=== PATIENT | male | born 1960 | race Caucasian/White ===

== ENCOUNTER 2016-09-15 16:25 | Emergency (ER) | payer OTHER ==
[~2016-09-15] VITALS: Ht 172.7 cm; Wt 90.7 kg
[~2016-09-15 16:25] MED LIST: 'PARAFON FORTE500 M1 PO; AMARYL1 M1 PO; ANAPROX DS550 MG PO; ANTIVERT/2525 M1 PO; ATIVAN1 MG PO; CIPRO500 MG PO; CYCLOBENZAPRINE10 MG PO; DAYPRO600 M1 PO; FLAGYL500 MG PO; FLEXERIL10 MG PO; KEFLEX500 MG PO; LISINOPRIL2.5 MG PO; MEDROL DOSEPAK4 MG PO; METFORMIN1000 MG PO; METFORMIN500 MG PO; MOTRIN800 MG PO; NAPROSYN500 MG PO; NORCO 325 MG-51 TAB PO; NORCO 7.5-3251 EACH PO; OMEPRAZOLE20 M2 PO; PERCOCET 325 MG1 TA3 PO; PHENERGAN25 M3 PO; PRAVACHOL10 MG; PRAVACHOL20 MG PO; RAYOS5 M1 PO; ROBAXIN750 MG PO; VICODIN 5-3001 EACH PO; VICODIN 5/500 505 MG PO; VICODIN 500 MG-1 TAB PO; VICODIN ES 7501 TAB PO; VOLTAREN50 M1 PO
[2016-09-15] MEDS ORDERED: Glimepiride1 MG PO (16:29)
[2016-09-15 17:20] LABS: BILIRUBIN NEGATIVE (NEGATIVE); BLOOD 3+ (NEGATIVE); CLARITY SL CLOUDY (CLEAR); COLOR YELLOW (YELLOW); GLUCOSE NEGATIVE (NEGATIVE); KETONE NEGATIVE (NEGATIVE); LEUKO ESTERASE NEGATIVE (NEGATIVE); NITRITE NEGATIVE (NEGATIVE); PROTEIN TRACE (NEGATIVE); SPECIFIC GRAVITY >= 1.030 (1.005-1.030); UROBILINOGEN 0.2 E.U./dl (0.2-1.0)
[2016-09-15 17:31] LABS: BASO % 0.2 % (0.0-1.0); EOS # 0.1 10*3/uL (0.0-0.4); EOS % 0.6 % (1.0-4.0); HEMATOCRIT 41.1 % (42.0-52.0); HEMOGLOBIN 13.3 g/dl (14.0-18.0); LYMPH % 23.5 % (27.0-41.0); MEAN CELL VOLUME 94.7 fl (80.0-94.0); MEAN CORPUSCULAR HGB 30.6 pg (27.0-31.0); MEAN CORPUSCULAR HGB CONC 32.4 g/dl (33.0-37.0); MEAN PLATELET VOLUME 9.7 fl (9.6-12.3); MONO # 0.7 10*3/uL (0.1-1.0); MONO % 8.6 % (3.0-9.0); NEUT # 5.7 10*3/uL (2.3-7.9); NEUT % 66.6 % (47.0-73.0); PLATELET COUNT AUTOMATED 201 10*3/uL (130-400); RED BLOOD COUNT 4.34 10*6/uL (4.50-5.90); RED CELL DISTRI WIDTH 13.6 % (0-14.5); WHITE BLOOD COUNT 8.6 10*3/uL (4.8-10.8)
[2016-09-15 17:32] LABS: RBC TNTC rbc/hpf (0-2); URINE REFLEX COMMENT YES (NO)
[2016-09-15 17:45] LABS: ALBUMIN 3.8 gm/dl (3.1-4.5); ALKALINE PHOSPHATASE 65 U/L (45-117); BILIRUBIN, TOTAL 0.4 mg/dl (0.2-1.0); BUN 17 mg/dl (7-24); CARBON DIOXIDE 26 mmol/L (21-32); CHLORIDE 105 mmol/L (98-107); EST GLOM FILT AFRICAN AMERICAN > 60 ml/min; GLUCOSE 115 mg/dL (65-99); POTASSIUM 3.7 mmol/L (3.5-5.1); SGOT/AST 15 IU/L (3-35); SGPT/ALT 52 U/L (12-78); SODIUM 141 mmol/L (136-145); TOTAL PROTEIN 6.9 gm/dL (6.4-8.2)
[2016-09-15] MEDS ORDERED: NORCO 5-325 TA1 EACH PO (18:06)
[2016-09-15] MEDS ORDERED: ZOFRAN ODT4 MG SL (18:06)
[2016-09-15] MEDS ORDERED: FLOMAX0.4 MG PO (18:06)
[2016-10-30] MEDS ORDERED: CYCLOBENZAPRINE10 MG PO (13:01)
[2016-10-30] MEDS ORDERED: PREDNISONE10 MG PO (13:01)
== END 2016-09-15 19:38 | disposition home or self-care (01) ==
LOC: ED 16:25
PROVIDERS: Nurse Practitioner Family
DX: N20.1 Calculus of ureter (principal); Z87.442 Personal history of urinary calculi; F17.200 Nicotine dependence, unspecified, uncomplicated; Z90.49 Acquired absence of other specified parts of digestive tract; Z91.013 Allergy to seafood

== ENCOUNTER 2016-12-25 11:38 | Emergency (ER) | payer OTHER ==
[~2016-12-25] VITALS: Ht 175.2 cm; Wt 90.7 kg
[~2016-12-25 11:38] MED LIST changes: +FLOMAX0.4 MG PO; +Glimepiride1 MG PO; +NORCO 5-325 TA1 EACH PO; +PREDNISONE10 MG PO; +ZOFRAN ODT4 MG SL
[2016-12-25] MEDS ORDERED: NAPROSYN500 MG PO (12:08)
== END 2016-12-25 13:55 | disposition home or self-care (01) ==
LOC: ED 11:38
DX: S83.92XA Sprain of unspecified site of left knee, initial encounter (principal); I10 Essential (primary) hypertension; Z91.013 Allergy to seafood; Z79.899 Other long term (current) drug therapy; W17.2XXA Fall into hole, initial encounter; Y93.9 Activity, unspecified; Y92.9 Unspecified place or not applicable; Y99.9 Unspecified external cause status

== ENCOUNTER 2017-02-13 16:03 | Emergency (ER) | payer OTHER ==
[2017-02-13] MEDS ORDERED: HYDROCODONE BIT1 T20 PO (16:15)
[2017-02-13] MEDS ORDERED: LISINOPRIL AND1 TAB PO (16:15)
== END 2017-02-13 17:02 | disposition home or self-care (01) ==
LOC: ED 16:03
DX: H53.8 Other visual disturbances (principal); R03.0 Elevated blood-pressure reading, without diagnosis of hypertension; I10 Essential (primary) hypertension; F17.200 Nicotine dependence, unspecified, uncomplicated; Z90.49 Acquired absence of other specified parts of digestive tract; E78.5 Hyperlipidemia, unspecified; Z91.013 Allergy to seafood

== ENCOUNTER 2017-02-19 10:29 | Emergency (ER) | payer OTHER ==
[~2017-02-19 10:29] MED LIST changes: +HYDROCODONE BIT1 T20 PO; +LISINOPRIL AND1 TAB PO
[2017-02-19] MEDS ORDERED: FLUOXETINE HYDR20 M1 PO (10:32)
[2017-02-19] MEDS ORDERED: NAPROSYN500 MG PO (12:23)
== END 2017-02-19 12:36 | disposition home or self-care (01) ==
LOC: ED 10:29
DX: S91.012A Laceration without foreign body, left ankle, initial encounter (principal); S83.92XA Sprain of unspecified site of left knee, initial encounter; S80.812A Abrasion, left lower leg, initial encounter; I10 Essential (primary) hypertension; E11.69 Type 2 diabetes mellitus with other specified complication; M06.9 Rheumatoid arthritis, unspecified; Z79.899 Other long term (current) drug therapy; Z91.013 Allergy to seafood; W17.2XXA Fall into hole, initial encounter; Y93.89 Activity, other specified; Y92.89 Other specified places as the place of occurrence of the external cause; Y99.8 Other external cause status

== ENCOUNTER → 2017-04-02 | Outpatient (CLI) | payer OTHER ==
[~2017-04-02] MED LIST changes: +FLUOXETINE HYDR20 M1 PO
[2017-04-02 10:45] LABS: BUN 22 mg/dl (7-24); CARBON DIOXIDE 25 mmol/L (21-32); CHLORIDE 104 mmol/L (98-107); CHOLESTEROL 188 mg/dL (<200); CPK 98 U/L (39-308); EST GLOM FILT AFRICAN AMERICAN > 60 ml/min; GLUCOSE 105 mg/dL (65-99); HDL CHOLESTEROL 51 mg/dl (40-60); LDL CHOLESTEROL 106 mg/dL (9-159); POTASSIUM 3.9 mmol/L (3.5-5.1); SODIUM 138 mmol/L (136-145); TRIGLYCERIDES 157 mg/dl (<150); VLDL CHOLESTEROL 31 mg/dL (6-40)
[2017-04-02 10:53] LABS: HEMOGLOBIN A1c 6.6 % (4.8-5.6)
== END | disposition home or self-care (01) ==
LOC: LAB 09:28
PROVIDERS: Family Medicine
DX: E11.9 Type 2 diabetes mellitus without complications (principal); E78.00 Pure hypercholesterolemia, unspecified

== ENCOUNTER → 2017-07-26 | Outpatient (CLI) | payer OTHER | LOC: US 11:30 | DX: M79.661 Pain in right lower leg (principal) ==

== ENCOUNTER → 2017-12-06 | Outpatient (CLI) | payer OTHER ==
[2017-12-06 10:53] LABS: BUN 18 mg/dl (7-24); CHLORIDE 102 mmol/L (98-107); CHOLESTEROL 117 mg/dL (<200); CPK 102 U/L (39-308); CREATININE 0.96 mg/dL (0.70-1.30); HDL CHOLESTEROL 54 mg/dl (40-60); LDL CHOLESTEROL 39 mg/dL (9-159); POTASSIUM 3.9 mmol/L (3.5-5.1); SODIUM 138 mmol/L (136-145); TRIGLYCERIDES 122 mg/dl (<150); VLDL CHOLESTEROL 24 mg/dL (6-40)
[2017-12-07 10:05] LABS: CREATININE,URINE 15.3 mg/dL (Not Estab.); MICRO ALBUMIN/CRE RATIO <19.6 (0.0-30.0)
== END | disposition home or self-care (01) ==
LOC: LAB 10:03
PROVIDERS: Family Medicine
DX: E78.00 Pure hypercholesterolemia, unspecified (principal); E11.9 Type 2 diabetes mellitus without complications

== ENCOUNTER 2018-10-06 05:58 | Emergency (ER) | payer OTHER ==
[~2018-10-06] VITALS: Ht 175.2 cm; Wt 88.5 kg
== END 2018-10-06 07:37 | disposition home or self-care (01) ==
LOC: ED 05:58
DX: S89.81XA Other specified injuries of right lower leg, initial encounter (principal); F17.200 Nicotine dependence, unspecified, uncomplicated; G89.29 Other chronic pain; E11.9 Type 2 diabetes mellitus without complications; E78.5 Hyperlipidemia, unspecified; I10 Essential (primary) hypertension; M06.9 Rheumatoid arthritis, unspecified; Z91.013 Allergy to seafood; Z90.49 Acquired absence of other specified parts of digestive tract; Z79.899 Other long term (current) drug therapy; W00.2XXA Other fall from one level to another due to ice and snow, initial encounter; Y93.89 Activity, other specified; Y92.89 Other specified places as the place of occurrence of the external cause; Y99.9 Unspecified external cause status

== ENCOUNTER 2019-07-30 19:29 | Inpatient (IN) | payer SELFPAY ==
[~2019-07-30] VITALS: Ht 175.3 cm; Wt 87.1 kg
--- NOTE | ~2019-07-30 | EKG ---
[place], [place] ELECTROCARDIOGRAM REPORT NAME: ÓSCAR OH UNIT #: [id number] ROOM: 520 DOCTOR: LON DRAFT REPORT BIRTHDATE: [birth year] [facility] Test Date: 2019-07-30 Test Time: 20:10:23 Pat Name: ÓSCAR OH Department: Room: 520 Gender: M Technology Training Associate: : 1960 Requested By: CARLOS RUIZ Order Number: [id number] Reading MD: Matilda Cherry MD Measurements Intervals [place] Rate: 67 P: 11 [place]: 180 QRS: -21 QRSD: 99 T: 24 QT: 398 QTc: 420 Interpretive Statements Sinus rhythm Normal ECG Electronically Signed On 08-14-2019 7:22:24 PST by Matilda Cherry MD CM:EKGRPT:ELECTROCARDIOGRAM REPORT 09 0722 CARLOS NAPIER DRAFT REPORT CARLOS RUIZ DO
[2019-07-30 19:31] VITALS: BP 138/76
[2019-07-30 20:42] LABS: BASO % 0.4 % (0.0-1.0); EOS # 0.1 10*3/uL (0.0-0.4); HEMATOCRIT 38.9 % (42.0-52.0); HEMOGLOBIN 12.7 g/dl (14.0-18.0); LYMPH # 2.2 10*3/uL (1.3-4.4); LYMPH % 22.2 % (27.0-41.0); MEAN CELL VOLUME 94.9 fl (80.0-94.0); MEAN CORPUSCULAR HGB CONC 32.6 g/dl (33.0-37.0); MEAN PLATELET VOLUME 10.2 fl (9.6-12.3); MONO # 0.8 10*3/uL (0.1-1.0); NEUT # 6.9 10*3/uL (2.3-7.9); NEUT % 68.1 % (47.0-73.0); PLATELET COUNT AUTOMATED 224 10*3/uL (130-400); RED CELL DISTRI WIDTH 13.2 % (0-14.5); WHITE BLOOD COUNT 10.1 10*3/uL (4.8-10.8)
[2019-07-30 20:56] LABS: ALBUMIN 3.3 gm/dl (3.1-4.5); ALKALINE PHOSPHATASE 92 U/L (45-117); BUN 22 mg/dl (7-24); CHLORIDE 104 mmol/L (98-107); CREATININE 1.22 mg/dL (0.70-1.30); POTASSIUM 3.7 mmol/L (3.5-5.1); SGOT/AST 15 IU/L (3-35); SGPT/ALT 31 U/L (12-78); SODIUM 138 mmol/L (136-145); TOTAL PROTEIN 6.4 gm/dL (6.4-8.2)
[2019-07-30 21:53] VITALS: BP 113/56
[2019-07-30 23:41] LABS: BILIRUBIN NEGATIVE (NEGATIVE); BLOOD NEGATIVE (NEGATIVE); CLARITY CLEAR (CLEAR); COLOR YELLOW (YELLOW); GLUCOSE 2+ (NEGATIVE); KETONE TRACE (NEGATIVE); LEUKO ESTERASE NEGATIVE (NEGATIVE); NITRITE NEGATIVE (NEGATIVE); SPECIFIC GRAVITY 1.025 (1.005-1.030); UROBILINOGEN 0.2 E.U./dl (0.2-1.0)
[2019-07-30 23:48] LABS: EPITHELIAL CELLS 0-2; RBC 0-2 rbc/hpf (0-2); WBC 0-2 wbc/hpf (0-5)
[2019-07-30 23:50] VITALS: BP 122/69
--- NOTE | 2019-07-30 23:50 | NUR ---
A 59, admitted to 5E, under the services of KAYLA Thompson DO with a diagnosis of ACUTE PANCREATITIS. Chief complaint is ABDOMINAL PAIN. Patient arrived via wheel chair from ER. Monitor applied. Initial assessment completed. Vital signs taken and recorded. DR. GONZALES notified of admission to the unit. Orders received. See assessment for past medical history, medications and allergies. Patient oriented to unit. [address] visitation policy reviewed. Clothing/patient valuable form completed. MANE BAER
--- NOTE | 2019-07-31 00:16 | NUR ---
NOTIFIED. DR. GONZALES THAT PATIENTS MEDICATION LIST IS UP TO DATE AND PATIENT TAKES HIS BLOOD SUGAR ONCE A DAY. DR. GONZALES STATED SHE WILL PUT ORDERS IN.
--- NOTE | 2019-07-31 01:35 | NUR ---
24 HR chart check completed.
--- NOTE | 2019-07-31 05:27 | NUR ---
PATIENT RESTING IN BED. BLOOD SUGAR 162. PATIENT VOICED NO OTHER CONCERNS AT THIS TIME. CALL LIGHT WITHIN REACH.
[2019-07-31 07:09] LABS: BASO % 0.3 % (0.0-1.0); EOS # 0.1 10*3/uL (0.0-0.4); EOS % 0.9 % (1.0-4.0); HEMATOCRIT 39.6 % (42.0-52.0); HEMOGLOBIN 12.7 g/dl (14.0-18.0); LYMPH # 1.7 10*3/uL (1.3-4.4); LYMPH % 21.1 % (27.0-41.0); MEAN CELL VOLUME 95.2 fl (80.0-94.0); MEAN CORPUSCULAR HGB 30.5 pg (27.0-31.0); MEAN CORPUSCULAR HGB CONC 32.1 g/dl (33.0-37.0); MEAN PLATELET VOLUME 10.3 fl (9.6-12.3); MONO # 0.7 10*3/uL (0.1-1.0); MONO % 8.9 % (3.0-9.0); NEUT # 5.5 10*3/uL (2.3-7.9); NEUT % 68.4 % (47.0-73.0); PLATELET COUNT AUTOMATED 218 10*3/uL (130-400); RED BLOOD COUNT 4.16 10*6/uL (4.50-5.90); RED CELL DISTRI WIDTH 13.4 % (0-14.5)
[2019-07-31 07:32] LABS: BUN 16 mg/dl (7-24); CHLORIDE 108 mmol/L (98-107); CHOLESTEROL 111 mg/dL (<200); HDL CHOLESTEROL 42 mg/dl (40-60); LDL CHOLESTEROL 52 mg/dL (9-159); PHOSPHOROUS 2.5 mg/dL (2.5-4.9); POTASSIUM 4.4 mmol/L (3.5-5.1); SODIUM 141 mmol/L (136-145); TRIGLYCERIDES 86 mg/dl (<150); VLDL CHOLESTEROL 17 mg/dL (6-40)
[2019-07-31 07:40] LABS: FREE T4 0.99 ng/dl (0.76-1.46)
[2019-07-31 07:41] LABS: LIPASE 2159 U/L (73-393)
[2019-07-31 07:44] LABS: ACT PARTIAL THROMBO TIME 25.9 SECONDS (20.0-32.1); INTERNATIONAL NORM RATIO 0.9 (2.0-3.5)
--- NOTE | 2019-07-31 07:45 | NUR ---
VITAL SIGNS STABLE, NO COMPLAINTS OF PAIN, SKIN TURGOR NON-TENTING, SKIN WARM DRY AND INTACT, ARI, HEART SOUNDS NORMAL, LUNG SOUNDS CLEAR THROUGHOUT, HYPERACTIVE BOWEL SOUNDS X4, ABDOMEN SOFT, NON-DISTENDED, NON-TENDER, + PERIPHERAL PULSES, IV SITE DRY AND INTACT, NO S/S OF INFECTION, PT PLEASANT AND COOPERATIVE. RICARDO OVERTON, SPNRCC
[2019-07-31 08:07] VITALS: BP 148/82
[2019-07-31 08:28] LABS: VITAMIN D, 25-HYDROXY 15.9 ng/mL (30-100)
--- NOTE | 2019-07-31 09:34 | NUR ---
PT COMPLAINED OF PAIN "6 IN MY UPPER ABDOMEN." MORPHINE 2MG IVP BY RENETTA SAENZ RN. WILL CONTINUE TO ASSESS. RICARDO OVERTON [facility]
--- NOTE | 2019-07-31 10:00 | NUR ---
PAIN MEDICATION EFFECTIVE "12/21 A LITTLE BIT BETTER." WILL CONTINUE TO ASSESS. RICARDO OVERTON [facility]
--- NOTE | 2019-07-31 10:30 | NUR ---
Meter Reader Inspector in to see patient. He is currently not in his room. Will follow up at a later time.
[2019-07-31 12:00] VITALS: BP 136/70
--- NOTE | 2019-07-31 12:46 | NUR ---
VS STABLE, PT RESTING COMFORTABLY, NO COMPLAINTS AT THIS TIME. WILL CONTINUE TO ASSESS. RICARDO HSIEH
[2019-07-31 16:00] VITALS: BP 130/68
--- NOTE | 2019-07-31 18:50 | NUR ---
PT MEDICATED WITH IV MORPHINE AND ZOFRAN PER PRN ORDER FOR C/O ABD PAIN AND NAUSEA/VOMITING. WILL MONITOR EFFECTIVENESS.
[2019-07-31 20:00] VITALS: BP 108/62
--- NOTE | 2019-07-31 20:01 | NUR ---
PATIENT REQUESTING PAIN MEDICATION FOR MED ABDOMINAL PAIN RATED 7/10 ON 0/10 SCALE. NORCO ADMINISTERED PRESCRIBED. WILL MONITOR FOR EFFECTIVENESS.
--- NOTE | 2019-07-31 21:01 | NUR ---
PATIENT AWAKE AND ALERT. PATIENT C/O MID ABDOMINAL PAIN- SEE PAIN MED ASSESSMENT. PATIENT HAS NO OTHER COMPLAINTS AT THIS TIME. CALL LIGHT WITHIN REACH.
--- NOTE | 2019-07-31 21:01 | NUR ---
PATIENT RESTING WITH EYES CLOSED AT THIS TIME.RESPIRATIONS EASY AND UNLABORED. CALL LIGHT WITHIN REACH. WILL MONITOR.
--- NOTE | 2019-07-31 23:50 | NUR ---
24 HR chart check completed.
--- NOTE | 2019-07-31 23:59 | NUR ---
PATIENT RESTING WITH EYES CLOSED AT THIS TIME. RESPIRATIONS EASY AND UNLABORED. CALL LIGHT WITHIN REACH. WILL MONITOR.
[2019-08-01] VITALS: BP 107/61
--- NOTE | 2019-08-01 05:45 | NUR ---
PATIENT AWAKE AND ALERT, SITTING IN BED. PT HAS NO COMPLAINTS AT THIS TIME. WILL MONITOR.
[2019-08-01 06:41] LABS: BASO % 0.2 % (0.0-1.0); EOS # 0.1 10*3/uL (0.0-0.4); EOS % 1.5 % (1.0-4.0); HEMATOCRIT 38.3 % (42.0-52.0); HEMOGLOBIN 12.2 g/dl (14.0-18.0); LYMPH # 1.8 10*3/uL (1.3-4.4); MEAN CORPUSCULAR HGB 30.6 pg (27.0-31.0); MEAN CORPUSCULAR HGB CONC 31.9 g/dl (33.0-37.0); MEAN PLATELET VOLUME 10.4 fl (9.6-12.3); MONO # 0.5 10*3/uL (0.1-1.0); MONO % 8.3 % (3.0-9.0); NEUT # 4.1 10*3/uL (2.3-7.9); NEUT % 62.7 % (47.0-73.0); PLATELET COUNT AUTOMATED 200 10*3/uL (130-400); RED BLOOD COUNT 3.99 10*6/uL (4.50-5.90); RED CELL DISTRI WIDTH 13.3 % (0-14.5); WHITE BLOOD COUNT 6.5 10*3/uL (4.8-10.8)
[2019-08-01 06:52] LABS: BUN 15 mg/dl (7-24); CHLORIDE 111 mmol/L (98-107); CREATININE 0.81 mg/dL (0.70-1.30); LIPASE 731 U/L (73-393); POTASSIUM 3.9 mmol/L (3.5-5.1); SGOT/AST 16 IU/L (3-35); SGPT/ALT 28 U/L (12-78); SODIUM 143 mmol/L (136-145)
[2019-08-01 06:54] LABS: ALKALINE PHOSPHATASE 93 U/L (45-117); TOTAL PROTEIN 5.9 gm/dL (6.4-8.2)
--- NOTE | 2019-08-01 07:59 | NUR ---
Shift chart check completed.
[2019-08-01 08:05] VITALS: BP 130/80
--- NOTE | 2019-08-01 08:31 | NUR ---
ZOFRAN GIVEN FOR NAUSEA
--- NOTE | 2019-08-01 09:23 | NUR ---
MOHIT PATTERSON [employer]AIL [employer]ISSION SALES ASSOCIATE ROUNDED & ORDERS RECEIVED
--- NOTE | 2019-08-01 10:30 | NUR ---
Poster in to talk to patient. Patient states lives at home with his . There are 14 steps in the home. Physician: Dr. Aung Damon [facility]: [facility] Home health services: none Patient's level of ADLs: INDEPENDENT Patient has working utilities: yes DME: none Follow-up physician's appointment after d/c: will be made by the hospitalist nurse director upon discharge Does patient want to access PORTAL?: no Discharge plan discussed with patient. He lives at home with his . He is independent in his ADLs and ambulation. Discussed home health care services and he denies any home needs at this time. When medically stable he will be discharged to home. His will provide transportation on discharge. OLEKSANDR CHAO
[2019-08-01 12:00] VITALS: BP 130/68
[2019-08-01] MEDS ORDERED: VITAMIN D32000 UNI1 PO (13:42)
--- NOTE | 2019-08-01 13:49 | NUR ---
Hep Lock discontinued. Site asymptomatic. Pressure applied. Sterile dressing applied. ALIN EAST Discharge instructions reviewed with patient/family. Patient receptive and verbalizes understanding. Follow-up care arranged. Written instructions given to patient/family. ALIN EAST
== END 2019-08-01 15:23 | disposition home or self-care (01) | DRG 439 ==
LOC: ED 19:29 → 5E 23:10 → EDHOLD 23:10 → 5E 23:38
PROVIDERS: Emergency Medicine; Internal Medicine; Registered Nurse; ADMIT Family Medicine
DX: K85.90 Acute pancreatitis without necrosis or infection, unspecified (principal); E44.0 Moderate protein-calorie malnutrition; I10 Essential (primary) hypertension; E11.9 Type 2 diabetes mellitus without complications; E78.5 Hyperlipidemia, unspecified; K57.30 Diverticulosis of large intestine without perforation or abscess without bleeding; G89.29 Other chronic pain; F32.9 Major depressive disorder, single episode, unspecified; E55.9 Vitamin D deficiency, unspecified; E78.00 Pure hypercholesterolemia, unspecified; F12.90 Cannabis use, unspecified, uncomplicated; Z91.041 Radiographic dye allergy status; Z91.013 Allergy to seafood; Z90.49 Acquired absence of other specified parts of digestive tract; Z83.3 Family history of diabetes mellitus; Z82.49 Family history of ischemic heart disease and other diseases of the circulatory system; Z83.6 Family history of other diseases of the respiratory system; Z81.3 Family history of other psychoactive substance abuse and dependence; Z68.27 Body mass index [BMI] 27.0-27.9, adult

== ENCOUNTER → 2019-08-04 | Outpatient (CLI) | payer SELFPAY ==
[~2019-08-04] MED LIST changes: +VITAMIN D32000 UNI1 PO
[2019-08-04 06:47] LABS: BASO % 0.2 % (0.0-1.0); EOS # 0.1 10*3/uL (0.0-0.4); EOS % 1.3 % (1.0-4.0); HEMATOCRIT 43.7 % (42.0-52.0); HEMOGLOBIN 13.9 g/dl (14.0-18.0); LYMPH % 22.8 % (27.0-41.0); MEAN CELL VOLUME 93.6 fl (80.0-94.0); MEAN CORPUSCULAR HGB 29.8 pg (27.0-31.0); MEAN CORPUSCULAR HGB CONC 31.8 g/dl (33.0-37.0); MEAN PLATELET VOLUME 9.9 fl (9.6-12.3); MONO # 0.7 10*3/uL (0.1-1.0); MONO % 7.7 % (3.0-9.0); NEUT % 67.9 % (47.0-73.0); PLATELET COUNT AUTOMATED 271 10*3/uL (130-400); RED BLOOD COUNT 4.67 10*6/uL (4.50-5.90); WHITE BLOOD COUNT 8.8 10*3/uL (4.8-10.8)
[2019-08-04 06:59] LABS: ALBUMIN 3.7 gm/dl (3.1-4.5); BILIRUBIN, DIRECT 0.1 mg/dL (0.0-0.2); TOTAL PROTEIN 7.5 gm/dL (6.4-8.2)
== END | disposition home or self-care (01) ==
LOC: LAB 06:14 → US 06:30
PROVIDERS: Family Medicine
DX: R10.9 Unspecified abdominal pain (principal); K85.80 Other acute pancreatitis without necrosis or infection; E11.9 Type 2 diabetes mellitus without complications; I10 Essential (primary) hypertension

== ENCOUNTER 2019-10-23 11:20 | Inpatient (IN) | payer SELFPAY ==
[~2019-10-23] VITALS: Ht 175 cm; Wt 86.0 kg
[2019-10-23 11:23] VITALS: BP 159/92
[2019-10-23 12:05] LABS: BASO % 0.1 % (0.0-1.0); EOS % 0.3 % (1.0-4.0); HEMATOCRIT 41.2 % (42.0-52.0); HEMOGLOBIN 13.4 g/dl (14.0-18.0); LYMPH # 1.8 10*3/uL (1.3-4.4); LYMPH % 22.1 % (27.0-41.0); MEAN CORPUSCULAR HGB 29.9 pg (27.0-31.0); MEAN CORPUSCULAR HGB CONC 32.5 g/dl (33.0-37.0); MEAN PLATELET VOLUME 10.2 fl (9.6-12.3); MONO # 0.6 10*3/uL (0.1-1.0); MONO % 7.8 % (3.0-9.0); NEUT # 5.5 10*3/uL (2.3-7.9); NEUT % 69.4 % (47.0-73.0); PLATELET COUNT AUTOMATED 223 10*3/uL (130-400); RED BLOOD COUNT 4.48 10*6/uL (4.50-5.90); RED CELL DISTRI WIDTH 12.9 % (0-14.5)
[2019-10-23 12:13] LABS: INTERNATIONAL NORM RATIO 0.9 (2.0-3.5)
[2019-10-23 12:21] LABS: ALBUMIN 3.6 gm/dl (3.1-4.5); ALKALINE PHOSPHATASE 121 U/L (45-117); BUN 13 mg/dl (7-24); CHLORIDE 104 mmol/L (98-107); CREATININE 0.92 mg/dL (0.70-1.30); LIPASE 739 U/L (73-393); POTASSIUM 3.8 mmol/L (3.5-5.1); SGOT/AST 11 IU/L (3-35); SGPT/ALT 33 U/L (12-78); SODIUM 136 mmol/L (136-145); TOTAL PROTEIN 7.1 gm/dL (6.4-8.2); TROPONIN I < 0.015 ng/ml (<0.045)
[2019-10-23 12:51] LABS: BILIRUBIN NEGATIVE (NEGATIVE); CLARITY SL CLOUDY (CLEAR); COLOR YELLOW (YELLOW); GLUCOSE 3+ (NEGATIVE); KETONE NEGATIVE (NEGATIVE); SPECIFIC GRAVITY 1.025 (1.005-1.030)
[2019-10-23 12:52] LABS: BACTERIA TRACE; BLOOD NEGATIVE (NEGATIVE); LEUKO ESTERASE NEGATIVE (NEGATIVE); MUCOUS 1+; NITRITE NEGATIVE (NEGATIVE); PH 5.5 (5.0-9.0); UROBILINOGEN 0.2 E.U./dl (0.2-1.0); WBC 0-2 wbc/hpf (0-5)
--- NOTE | 2019-10-23 16:37 | NUR ---
Time: 1614 A 59 year old MALE admitted to under services of DR. CYNDI KIDD,CHERYL. Pt. arrived via wheel chair from ER. Chief complaint: LUQ ABDOMINAL PAIN. ZENAIDA NIELSON
--- NOTE | 2019-10-23 17:00 | NUR ---
PT MEDICATED WITH 1 TIME DIALUDID DOSE FOR C/O LUQ ABDOMINAL PAIN. PT RATES PAIN 05/23. WILL MONITOR.
--- NOTE | 2019-10-23 17:25 | NUR ---
DR. SCHMITZ AWARE OF CONSULT.
--- NOTE | 2019-10-23 18:19 | NUR ---
PRN DILAUDID EFFECTIVE PER PT. WILL MONITOR.
[2019-10-23 20:00] VITALS: BP 118/70
--- NOTE | 2019-10-23 20:07 | NUR ---
24 HR chart check completed.
--- NOTE | 2019-10-23 20:25 | NUR ---
RESTING IN BED WATCHING TV. RESPIRATIONS EASY. LUNGS DIMINISHED, CLEAR. PULSE OX 95% RA. C/O EPIGASTRIC PAIN RATING A 7 - MEDICATED WITH MORPHINE IV PER PRN ORDER. ALSO MEDICATED WITH ZOFRAN IV TO ASSIST WITH NAUSEA. IV FLUIDS INFUSING PER ORDER. CALL LIGHT WITHIN REACH. WILL MONITOR FOR EFFECTIVENESS
--- NOTE | 2019-10-23 22:00 | NUR ---
EARLIER MEDS APPEAR EFFECTIVE, RESTING IN BED WITH EYES CLOSED. CALL LIGHT WITHIN REACH.
[2019-10-23 23:49] VITALS: BP 136/74
--- NOTE | 2019-10-24 | NUR ---
SLEEPING. NO DISTRESS NOTED. RESPIRATIONS EASY. VSS. IV FLUIDS INFUSING. CALL LIGHT WITHIN REACH.
[2019-10-24] MEDS ORDERED: ATORVASTATIN CA40 M1 PO (02:34)
[2019-10-24] MEDS ORDERED: FLUOXETINE HCL40 MG PO (02:35)
[2019-10-24] MEDS ORDERED: TEMAZEPAM30 MG PO (02:35)
[2019-10-24 06:51] LABS: BASO % 0.2 % (0.0-1.0); EOS # 0.1 10*3/uL (0.0-0.4); EOS % 1.2 % (1.0-4.0); HEMATOCRIT 39.6 % (42.0-52.0); HEMOGLOBIN 12.5 g/dl (14.0-18.0); LYMPH # 1.9 10*3/uL (1.3-4.4); LYMPH % 29.3 % (27.0-41.0); MEAN CELL VOLUME 93.6 fl (80.0-94.0); MEAN CORPUSCULAR HGB 29.6 pg (27.0-31.0); MEAN CORPUSCULAR HGB CONC 31.6 g/dl (33.0-37.0); MEAN PLATELET VOLUME 10.3 fl (9.6-12.3); MONO # 0.6 10*3/uL (0.1-1.0); MONO % 9.8 % (3.0-9.0); NEUT # 3.9 10*3/uL (2.3-7.9); NEUT % 59.3 % (47.0-73.0); PLATELET COUNT AUTOMATED 195 10*3/uL (130-400); RED BLOOD COUNT 4.23 10*6/uL (4.50-5.90); WHITE BLOOD COUNT 6.5 10*3/uL (4.8-10.8)
--- NOTE | 2019-10-24 06:56 | NUR ---
AWAKE, RESTING IN BED. MEDICATED WITH MORPHINE AND ZOFRAN IV PER PRN ORDER FOR COMPLAINTS OF EPIGASTRIC PAIN RATING A 6 AND NAUSEA. CALL LIGHT WITHIN REACH. WILL MONITOR FOR EFFECTIVENESS
[2019-10-24 07:14] LABS: ALBUMIN 3.1 gm/dl (3.1-4.5); BILIRUBIN, DIRECT 0.1 mg/dL (0.0-0.2); BUN 15 mg/dl (7-24); CHLORIDE 112 mmol/L (98-107); CHOLESTEROL 96 mg/dL (<200); CREATININE 0.76 mg/dL (0.70-1.30); LIPASE 511 U/L (73-393); PHOSPHOROUS 2.8 mg/dL (2.5-4.9); SGOT/AST 163 IU/L (3-35); SGPT/ALT 153 U/L (12-78); SODIUM 142 mmol/L (136-145); TOTAL PROTEIN 6.1 gm/dL (6.4-8.2); TRIGLYCERIDES 108 mg/dl (<150); VLDL CHOLESTEROL 22 mg/dL (6-40)
[2019-10-24 07:21] LABS: ALKALINE PHOSPHATASE 160 U/L (45-117); HDL CHOLESTEROL 38 mg/dl (40-60); LDL CHOLESTEROL 36 mg/dL (9-159)
[2019-10-24 08:00] VITALS: BP 119/63
--- NOTE | 2019-10-24 08:15 | NUR ---
TRANSPORTED OFF FLOOR VIA WC FOR TESTING
--- NOTE | 2019-10-24 08:40 | NUR ---
RETURNED FROM TESTING.
--- NOTE | 2019-10-24 09:00 | NUR ---
Inhalation Therapy Aide in to talk to patient. Patient states lives at home with his . There are 14 steps in the home. Physician: Dr. Aung Damon [facility]: [facility] Home health services: none Patient's level of ADLs: INDEPENDENT Patient has working utilities: yes DME: none Follow-up physician's appointment after d/c: will be made by the hospitalist nurse director upon discharge Does patient want to access PORTAL?: no Discharge plan discussed with patient. He is ambulating in his room. He lives at home with his . He is independent in his ADLs and ambulation. Discussed home health care services and he denies any home needs at this time. When medically stable he will be discharged to home. His will provide transportation on discharge. OLEKSANDR CHAO
--- NOTE | 2019-10-24 09:30 | NUR ---
PATIENT BATHED, IV RECONNECTED.
--- NOTE | 2019-10-24 10:50 | NUR ---
PT RESTING IN BED WITH VISITORS AT HIS SIDE. C/O EPIGASTRIC AREA PAIN, RATES PAIN 6 OR 7 ON PAIN SCALE 0-10. MEDICATED WITH MORPHINE IV PER PRN ORDER, SEE EMAR. VISITORS AT HIS SIDE. CALL LIGHT IN REACH.
--- NOTE | 2019-10-24 11:50 | NUR ---
Nutritional Support Services Note: Pt is currently NPO due to pancreatitis. Will follow for advancement of diet. ELY Cr internet systems administrator
--- NOTE | 2019-10-24 11:50 | NUR ---
PT RESTING IN BED. STATES PAIN MEDICATION HELPS. IVF INFUSING WITH NO PROBLEM. CALL LIGHT IN REACH.
[2019-10-24 12:00] VITALS: BP 118/60
--- NOTE | 2019-10-24 15:32 | NUR ---
PT C/O 05/23 ABD PAIN AND NAUSEA. MEDICATED PER ORDER. WILL MONITOR FOR RELIEF. VOICES NO OTHER CONCERNS AT THIS TIME. RESTING IN BED. CALL LIGHT WITHIN REACH. RESPS EASY AND NON LABORED
[2019-10-24 16:00] VITALS: BP 115/61
--- NOTE | 2019-10-24 16:14 | NUR ---
MORPHINE AND ZOFRAN EFFECTIVE PER PT
--- NOTE | 2019-10-24 17:18 | NUR ---
SPOKE WITH DR CHAVEZ WHO STATED TO CHANGED ZOFRAN TO Q4H
--- NOTE | 2019-10-24 19:39 | NUR ---
C/O ABD PAIN MID EPIGASTRIC RATED "6-7" MORPHINE GIVEN PER ORDER FOR PAIN AND PT. ALSO GETS NAUSEATED WITH MORPHINE SO ZOFRAN GIVEN PER ORDER FOR THIS. SEE MAR.
[2019-10-24 20:00] VITALS: BP 133/61
--- NOTE | 2019-10-24 20:39 | NUR ---
MORPHINE EFFECTIVE FOR ABD PAIN PER PT. NO PAIN AT THIS TIME. ZOFRAN EFFECTIVE NO C/O NAUSEA PER PT.
[2019-10-25] VITALS: BP 101/61
--- NOTE | 2019-10-25 | NUR ---
C/O ABD PAIN RATED 6-7 PER PT. AND ZOFRAN GIVEN PER ORDER FOR NAUSEA HE GETS WHEN HE TAKES MORPHINE. SEE MAR.
--- NOTE | 2019-10-25 01:00 | NUR ---
MORPHINE AND ZOFRAN EFFECTIVE FOR PAIN AND NAUSEA.
--- NOTE | 2019-10-25 04:01 | NUR ---
24 HR chart check completed.
--- NOTE | 2019-10-25 04:10 | NUR ---
MORPHINE GIVEN PER ORDER FOR ABD PAIN RATED "6-7" ALSO ZOFRAN GIVEN FOR NAUSEA. PATIENT STATES "I'M FEELING BETTER THAN YESTERDAY"
--- NOTE | 2019-10-25 05:10 | NUR ---
MORPHINE AND ZOFRAN EFFECTIVE FOR ABD PAIN AND NAUSEA PER PT.
[2019-10-25 06:39] LABS: BASO % 0.3 % (0.0-1.0); EOS # 0.1 10*3/uL (0.0-0.4); EOS % 1.1 % (1.0-4.0); HEMATOCRIT 37.4 % (42.0-52.0); HEMOGLOBIN 11.8 g/dl (14.0-18.0); LYMPH # 1.2 10*3/uL (1.3-4.4); LYMPH % 16.6 % (27.0-41.0); MEAN CELL VOLUME 94.9 fl (80.0-94.0); MEAN CORPUSCULAR HGB 29.9 pg (27.0-31.0); MEAN CORPUSCULAR HGB CONC 31.6 g/dl (33.0-37.0); MEAN PLATELET VOLUME 10.8 fl (9.6-12.3); MONO # 0.7 10*3/uL (0.1-1.0); MONO % 9.3 % (3.0-9.0); NEUT # 5.1 10*3/uL (2.3-7.9); NEUT % 72.6 % (47.0-73.0); PLATELET COUNT AUTOMATED 166 10*3/uL (130-400); RED BLOOD COUNT 3.94 10*6/uL (4.50-5.90)
[2019-10-25 06:58] LABS: ALKALINE PHOSPHATASE 246 U/L (45-117); BUN 12 mg/dl (7-24); CHLORIDE 114 mmol/L (98-107); CREATININE 0.81 mg/dL (0.70-1.30); POTASSIUM 4.2 mmol/L (3.5-5.1); SGOT/AST 302 IU/L (3-35); SGPT/ALT 378 U/L (12-78); SODIUM 143 mmol/L (136-145); TOTAL PROTEIN 5.8 gm/dL (6.4-8.2)
[2019-10-25 08:00] VITALS: BP 136/66
--- NOTE | 2019-10-25 09:00 | NUR ---
Medical Fee Clerk in to see patient. No new needs or request at this time. He denies any home needs. When medically stable he will be discharged to home.
--- NOTE | 2019-10-25 09:08 | NUR ---
C/O MID ABDOMINAL PAIN OF 8/10 AND NAUSEA. GIVEN MORPHINE AND ZOFRAN. WILL CONT TO MONITOR. CALL LIGHT IN REACH.
--- NOTE | 2019-10-25 10:08 | NUR ---
IV MS AND ZOFRAN EFF. WILL CONT TO MONITOR. CALL LIGHT IN REACH.
[2019-10-25 12:00] VITALS: BP 123/68
--- NOTE | 2019-10-25 13:20 | NUR ---
C/O PAIN TO MID ABDOMEN OF 8/10 AND NAUSEA. MS AND ZOFRAN GIVEN AT THIS TIME. WILL CONT TO MONITOR. CALL LIGHT IN REACH.
--- NOTE | 2019-10-25 14:20 | NUR ---
AND GER EFF. WILL CONT TO MONITOR. CALL LIGHT IN REACH.
--- NOTE | 2019-10-25 15:54 | NUR ---
MRCP RESULTS RELAYED TO DR SCHMITZ PER HIS REQUEST. NEW ORDER TO REPEAT LFTs and LIPASE TOMORROW, SOFT DIET.
[2019-10-25 16:00] VITALS: BP 134/78
--- NOTE | 2019-10-25 16:09 | NUR ---
Nutritional Support Services Note: Pt is tolerating a full liquid diet has some c/o nausea seems to go away with the zofran. Diet advanced to soft for this evenings dinner, will follow for tolerance to diet. Appetite has been fair. Alisa Ordoñez Rdn Ld
--- NOTE | 2019-10-25 18:28 | NUR ---
C/O PAIN OF "41"/10 TO MID ABD AND NAUSEA, MS AND ZOFRAN GIVEN AT THIS TIME. WILL CONT TO MONITOR. CALL LIGHT IN REACH.
--- NOTE | 2019-10-25 19:20 | NUR ---
MORPHINE AND ZOFRAN EFFECTIVE FOR PAIN AND NAUSEA PER PT.
[2019-10-25 20:00] VITALS: BP 121/63
--- NOTE | 2019-10-25 20:44 | NUR ---
24 HR chart check completed.
--- NOTE | 2019-10-25 23:30 | NUR ---
NORCO GIVEN PER ORDER FOR ABD PAIN RATED "5" PT. STATED PAIN FEELS A LITTLE DIFFERENT BETTER. SEE MAR.
[2019-10-26] VITALS: BP 139/58
--- NOTE | 2019-10-26 00:25 | NUR ---
PT. RESTING COMFORTABLE AND EXPRESSED NORCO HELPING WITH DISCOMFORT.
--- NOTE | 2019-10-26 06:00 | NUR ---
DENIES NEED FOR PAIN MEDICATION AT THIS TIME.
[2019-10-26 06:06] LABS: HEPATITIS B SURFACE AG Negative (Negative); HEPATITIS C VIRUS ANTIBODY <0.1 s/co (0.0-0.9)
[2019-10-26 06:36] LABS: ALBUMIN 3.2 gm/dl (3.1-4.5); ALKALINE PHOSPHATASE 246 U/L (45-117); BUN 11 mg/dl (7-24); CHLORIDE 114 mmol/L (98-107); LIPASE 218 U/L (73-393); POTASSIUM 4.3 mmol/L (3.5-5.1); SGOT/AST 85 IU/L (3-35); SGPT/ALT 237 U/L (12-78); SODIUM 145 mmol/L (136-145); TOTAL PROTEIN 6.1 gm/dL (6.4-8.2)
[2019-10-26 08:00] VITALS: BP 137/75
--- NOTE | 2019-10-26 09:00 | NUR ---
Labour Market Economist in to see patient. No new needs or request at this time. He is sitting on the edge of his bed. He denies any home needs. He states Dr. Damon just told him he could go home today so he is awaiting his discharge instructions.
--- NOTE | 2019-10-26 11:34 | NUR ---
Nutritional Support Services Note: Pt is tolerating soft diet well. Nausea is improving. States he is slowly feeling better. Continue to follow for tolerance to diet. Will follow if needed. ELY Cr commander internal affairs
[2019-10-26 12:00] VITALS: BP 129/53
--- NOTE | 2019-10-26 13:13 | NUR ---
PT DISCHARGED AT THIS TIME. IV REMOVED AND PRESSURE DRESSING APPLIED. VERBALIZED UNDERSTANDING OF DISCHARGE INSTRUCTIONS.
== END 2019-10-26 13:13 | disposition home or self-care (01) | DRG 439 ==
LOC: ED 11:20 → 5E 15:17 → EDHOLD 15:17 → 5E 15:58
PROVIDERS: Emergency Medicine; Family Medicine; Internal Medicine; ADMIT Family Medicine
DX: K85.90 Acute pancreatitis without necrosis or infection, unspecified (principal); E44.0 Moderate protein-calorie malnutrition; I10 Essential (primary) hypertension; E11.9 Type 2 diabetes mellitus without complications; M06.9 Rheumatoid arthritis, unspecified; M51.36 Other intervertebral disc degeneration, lumbar region; E78.5 Hyperlipidemia, unspecified; K86.1 Other chronic pancreatitis; F32.9 Major depressive disorder, single episode, unspecified; R74.0 Nonspecific elevation of levels of transaminase and lactic acid dehydrogenase [LDH]; Z91.041 Radiographic dye allergy status; Z91.013 Allergy to seafood; Z90.49 Acquired absence of other specified parts of digestive tract; Z83.3 Family history of diabetes mellitus; Z81.2 Family history of tobacco abuse and dependence; Z83.6 Family history of other diseases of the respiratory system; Z68.28 Body mass index [BMI] 28.0-28.9, adult

== ENCOUNTER 2020-01-03 18:20 | Emergency (ER) | payer SELFPAY ==
[~2020-01-03] VITALS: Wt 75.7 kg
[~2020-01-03 18:20] MED LIST changes: +ATORVASTATIN CA40 M1 PO; +FLUOXETINE HCL40 MG PO; +TEMAZEPAM30 MG PO
[2020-01-03 19:22] LABS: BASO % 0.1 % (0.0-1.0); HEMATOCRIT 42.7 % (42.0-52.0); LYMPH # 1.3 10*3/uL (1.3-4.4); LYMPH % 10.5 % (27.0-41.0); MEAN CORPUSCULAR HGB 29.4 pg (27.0-31.0); MEAN CORPUSCULAR HGB CONC 32.3 g/dl (33.0-37.0); MONO # 0.6 10*3/uL (0.1-1.0); MONO % 4.9 % (3.0-9.0); NEUT # 10.4 10*3/uL (2.3-7.9); NEUT % 84.3 % (47.0-73.0); PLATELET COUNT AUTOMATED 226 10*3/uL (130-400); RED BLOOD COUNT 4.69 10*6/uL (4.50-5.90); RED CELL DISTRI WIDTH 13.5 % (0-14.5); WHITE BLOOD COUNT 12.4 10*3/uL (4.8-10.8)
[2020-01-03 19:39] LABS: ALBUMIN 3.8 gm/dl (3.1-4.5); ALKALINE PHOSPHATASE 97 U/L (45-117); BUN 14 mg/dl (7-24); CHLORIDE 108 mmol/L (98-107); CREATININE 0.86 mg/dL (0.70-1.30); POTASSIUM 3.8 mmol/L (3.5-5.1); SGOT/AST 20 IU/L (3-35); SGPT/ALT 29 U/L (12-78); SODIUM 139 mmol/L (136-145); TOTAL PROTEIN 7.1 gm/dL (6.4-8.2)
[2020-01-03 19:40] LABS: ACETAMINOPHEN (TYLENOL) < 5.0 ug/ml (10-30); ETHYL ALCOHOL < 3.0 mg/dl (<3)
[2020-01-03 20:01] LABS: BILIRUBIN NEGATIVE (NEGATIVE); BLOOD NEGATIVE (NEGATIVE); CLARITY CLEAR (CLEAR); COLOR YELLOW (YELLOW); GLUCOSE NEGATIVE (NEGATIVE); KETONE NEGATIVE (NEGATIVE); LEUKO ESTERASE NEGATIVE (NEGATIVE); NITRITE NEGATIVE (NEGATIVE); UROBILINOGEN 0.2 E.U./dl (0.2-1.0)
[2020-01-03 20:06] LABS: BACTERIA TRACE; EPITHELIAL CELLS 0-2; MUCOUS 1+; RBC 0-2 rbc/hpf (0-2); URINE AMPHETAMINES < 1000 (1000ng/ml); URINE BARBITURATES < 200 (200ng/ml); URINE BENZODIAZEPINES < 200 (200ng/ml); URINE CANNABINOIDS (THC) > 50 (50ng/ml); URINE COCAINE < 300 (300ng/ml); URINE METHADONE < 300 (300ng/ml); URINE OPIATES < 300 (300ng/ml); WBC 0-2 wbc/hpf (0-5)
[2020-01-03 20:07] LABS: URINE PHENCYCLIDINE < 25 (25ng/ml)
== END 2020-01-04 08:00 | disposition short-term general hospital (02) ==
LOC: ED 18:20
PROVIDERS: Emergency Medicine
DX: F32.9 Major depressive disorder, single episode, unspecified (principal); E11.9 Type 2 diabetes mellitus without complications; G89.29 Other chronic pain; E78.5 Hyperlipidemia, unspecified; I10 Essential (primary) hypertension; M06.9 Rheumatoid arthritis, unspecified; Z91.041 Radiographic dye allergy status; Z91.013 Allergy to seafood; Z79.899 Other long term (current) drug therapy; Z90.49 Acquired absence of other specified parts of digestive tract; Z87.442 Personal history of urinary calculi

== ENCOUNTER 2020-04-15 14:05 | Inpatient (IN) | payer SELFPAY ==
[~2020-04-15] VITALS: Ht 175.2 cm; Wt 83.7 kg
[2020-04-15 14:16] VITALS: BP 142/72
[2020-04-15 14:53] LABS: BILIRUBIN NEGATIVE (NEGATIVE); BLOOD 3+ (NEGATIVE); CLARITY CLOUDY (CLEAR); COLOR YELLOW (YELLOW); GLUCOSE TRACE (NEGATIVE); KETONE 3+ (NEGATIVE); LEUKO ESTERASE NEGATIVE (NEGATIVE); NITRITE NEGATIVE (NEGATIVE); UROBILINOGEN 0.2 E.U./dl (0.2-1.0)
[2020-04-15 15:01] LABS: HEMATOCRIT 42.3 % (42.0-52.0); MEAN CELL VOLUME 93.4 fl (80.0-94.0); MEAN CORPUSCULAR HGB CONC 32.2 g/dl (33.0-37.0); MEAN PLATELET VOLUME 9.9 fl (9.6-12.3); PLATELET COUNT AUTOMATED 234 10*3/uL (130-400); RED BLOOD COUNT 4.53 10*6/uL (4.50-5.90); RED CELL DISTRI WIDTH 14.6 % (0-14.5); WHITE BLOOD COUNT 14.6 10*3/uL (4.8-10.8)
[2020-04-15 15:10] LABS: BACTERIA 2+; CALCIUM OXALATE CRYSTALS 1+; RBC TNTC rbc/hpf (0-2)
--- NOTE | 2020-04-15 15:11 | NUR ---
PT WITH APPROXIMATELY 200CC OF GREEN EMESIS NOTED IN BAG,PT POSITIONED FOR COMFORT WITH [employer] INTACT AND CALL LIGHT WITHIN REACH,DR. WYNNE NOTIFIED OF EMESIS.
[2020-04-15 15:17] LABS: ALBUMIN 4.2 gm/dl (3.1-4.5); ALKALINE PHOSPHATASE 97 U/L (45-117); BUN 20 mg/dl (7-24); CHLORIDE 109 mmol/L (98-107); CREATININE 1.37 mg/dL (0.70-1.30); LIPASE 107 U/L (73-393); SGOT/AST 13 IU/L (3-35); SGPT/ALT 24 U/L (12-78); SODIUM 138 mmol/L (136-145); TOTAL PROTEIN 7.6 gm/dL (6.4-8.2)
[2020-04-15 15:28] LABS: TROPONIN I < 0.015 ng/ml (<0.045)
[2020-04-15 15:48] LABS: BURR CELLS FEW; PLATELET SUFFICIENCY NORMAL (NORMAL); TOTAL CELLS COUNTED 100 #CELLS
[2020-04-15 17:54] VITALS: BP 138/68
--- NOTE | 2020-04-15 19:51 | NUR ---
EMESIS OF 200CC GREEN LIQUID. DR RENTERIA NOTIFIED.
[2020-04-15 20:00] VITALS: BP 133/71
--- NOTE | 2020-04-15 20:15 | NUR ---
Time: 2014 A 59 year old MALE admitted to 4E under services of KAYLA PARRY DO. Pt. arrived via bed from ER. Chief complaint: NAUSEA/VOMITING. BERTHA FLOWERS
[2020-04-15] MEDS ORDERED: ABILIFY10 MG PO (20:46)
[2020-04-15] MEDS ORDERED: TRAZODONE50 MG PO (20:48)
[2020-04-15] MEDS ORDERED: BUSPAR5 MG PO (20:49)
[2020-04-15] MEDS ORDERED: VISTARIL25 MG PO (20:49)
[2020-04-15] MEDS ORDERED: LISINOPRIL10 M1 PO (20:50)
[2020-04-15] MEDS ORDERED: SERTRALINE HYD100 MG PO (20:51)
--- NOTE | 2020-04-15 21:06 | NUR ---
NOTIFIED DR. COSBY OF PATIENTS CT RESULTS. NOTIFIED HIM OF OBSTRUCTING KIDNEY STONE. DR. COSBY STATED IT WAS OK TO TELL THE PATIENT HE HAS A STONE AND HE WILL SPEAK WITH THE ATTENDING AND SEE IF THE PATIENT NEEDS TO BE TRANSFERRED OUT BUT THE STONE SIZE IS SMALL ENOUGH IT COULD PASS. NOTIFIED HIM PATIENT IS NOT ON FLUIDS EITHER. ORDER RECIEVED TO STRAIN URINE AND HE WILL PUT FLUIDS ON
--- NOTE | 2020-04-15 21:12 | NUR ---
NOTIFIED DR. COSBY AT THIS TIME THAT IT HAS BEEN A WHILE SINCE THE PATIENT HAS HAD A KIDNEY STONE AND THAT HE HAS NO UROLOGIST.
--- NOTE | 2020-04-15 22:01 | NUR ---
PRN ZOFRAN GIVEN FOR PT VOMITING. CALL LIGHT WITHIN REACH, WILL MONITOR
--- NOTE | 2020-04-15 22:12 | NUR ---
NOTIFIED DR. COSBY THAT SOON PATIENT TOOK FLOMAX ABOUT A MINUTE LATER PATIENT VOMITED GREEN LIQUID. AND HALF THE FLOMAX CAPSULE WAS IN THE BASIN. DR. COSBY STATED THAT HE WOULD PUT IN FOR FLOMAX IN THE AM SINCE WE AREN'T SURE HOW MUCH THE PATIENT ACTUALLY RECIEVED
--- NOTE | 2020-04-15 22:25 | NUR ---
STRAINER AND URINAL GIVEN TO PATIENT AND INSTRUCTED TO USE STRAINER IN CASE OF PASSING OF STONE. PATIENT VERBALIZED UNDERSTANDING. DR. COSBY ALSO AWARE OF PATIENTS HOME MEDS BEING RECONCILED AND PATIENT STATED THAT HE DOES NOT NEED ANY OF HIS MEDICATIONS TONIGHT HE HAS TAKEN THEM ALL ALREADY
--- NOTE | 2020-04-15 23:00 | NUR ---
ZOFRAN EFFECTIVE AT THIS TIME PER PT. BUT PATIENT STATES HE DOESN'T REALLY FEEL THE VOMITING COME ON IT JUST HAPPENS.
--- NOTE | 2020-04-15 23:34 | NUR ---
NOTIFIED DR. COSBY OF PATIENT HAVING 400CC OF GREEN EMESIS TOTAL OUT. DR. COSBY WILL PUT IN FOR SOMETHING ELSE
[2020-04-16] VITALS: BP 138/71
--- NOTE | 2020-04-16 00:01 | NUR ---
ONE TIME DOSE OF PHENERGAN GIVEN FOR PT COMPLANTS OF VOMITING. CALL LIGHT WITHIN REACH, WILL MONITOR
--- NOTE | 2020-04-16 00:45 | NUR ---
ONE TIME DOSE OF PHENERGAN APPEARS EFFECTIVE PT SLEEPING
[2020-04-16 06:28] LABS: BASO % 0.1 % (0.0-1.0); HEMATOCRIT 40.7 % (42.0-52.0); LYMPH # 0.9 10*3/uL (1.3-4.4); LYMPH % 5.3 % (27.0-41.0); MEAN CELL VOLUME 93.6 fl (80.0-94.0); MEAN CORPUSCULAR HGB 29.9 pg (27.0-31.0); MEAN CORPUSCULAR HGB CONC 31.9 g/dl (33.0-37.0); MEAN PLATELET VOLUME 10.4 fl (9.6-12.3); MONO # 1.1 10*3/uL (0.1-1.0); MONO % 6.1 % (3.0-9.0); NEUT # 15.4 10*3/uL (2.3-7.9); NEUT % 87.9 % (47.0-73.0); PLATELET COUNT AUTOMATED 219 10*3/uL (130-400); RED BLOOD COUNT 4.35 10*6/uL (4.50-5.90); RED CELL DISTRI WIDTH 14.7 % (0-14.5); WHITE BLOOD COUNT 17.5 10*3/uL (4.8-10.8)
--- NOTE | 2020-04-16 06:31 | NUR ---
PRN ZOFRAN GIVEN FOR PATIENT ACTIVELY VOMITING. CALL LIGHT WITHIN REACH, WILL MONITOR
[2020-04-16 06:38] LABS: CREATININE 1.59 mg/dL (0.70-1.30); POTASSIUM 4.3 mmol/L (3.5-5.1)
--- NOTE | 2020-04-16 06:40 | NUR ---
NOTIFIED DR. COSBY OF PATIENT HAVING 3L OF FLUID LAST NIGHT WITH ONLY 400CC OF URINE OUT
--- NOTE | 2020-04-16 07:27 | NUR ---
BLOOD SUGAR TAKEN FROM [facility] AT 127
[2020-04-16 08:00] VITALS: BP 145/73
--- NOTE | 2020-04-16 10:33 | NUR ---
PT C/O 03/22 PAIN IN LEFT BACK/FLANK AREA RADIATING TO ABD. MEDICATED WITH PO NORCO PER ORDER. WILL MONITOR.
--- NOTE | 2020-04-16 11:33 | NUR ---
PER PATIENT, MOPRHINE HAS BEEN EFFECTIVE FOR PAIN. RELAXED AT THIS TIME WITH CALL LIGHT IN REACH.
[2020-04-16 12:00] VITALS: BP 120/67
--- NOTE | 2020-04-16 12:57 | NUR ---
Storage Battery Tester in to talk to patient. Patient states lives at home with . There are no steps in the home. Physician: calvin Pharmacy: [facility] [place] health services: none Patient's level of ADLs: INDEPENDENT Patient has working utilities: all working DME: none Follow-up physician's appointment after d/c: will be made by hospitalist nurse director upon discharge Does patient want to access PORTAL?: no Discharge plan discussed with patient, he states he lives at home with , he is independent in adls and ambulation he states he will return home when discharged, also discussed with him no insurance, he stated Liss from [employer] visited him this am and gave him papers to fill out for help with the hospital stay, patient denies any other needs at this time. JONATHAN SAUNDERS
--- NOTE | 2020-04-16 15:09 | NUR ---
PT MEDICATED WITH IV ZOFRAN AT THIS TIME PER ORDER FOR COMPLAINTS OF NAUSEA. WILL MONITOR FOR EFFECTIVENESS.
--- NOTE | 2020-04-16 15:14 | NUR ---
PATIENT GIVEN IV MORPHINE AT THIS TIME FOR COMPLAINTS OF PAIN IN LEFT FLANK THAT RADIATES TO ABD RATED 7/10. WILL MONITOR FOR EFFECTIVENESS.
[2020-04-16 15:48] VITALS: BP 140/72
--- NOTE | 2020-04-16 16:09 | NUR ---
PER PATIENT, PRN ZOFRAN HAS BEEN EFFECTIVE. NO FURTHER COMPLAINTS.
--- NOTE | 2020-04-16 16:14 | NUR ---
PER PATIENT, PRN MORPHINE HAS BEEN EFFECTIVE. COMFORTABLE AT THIS TIME.
--- NOTE | 2020-04-16 17:21 | NUR ---
PT MEDICATED WITH IV ZOFRAN PER ORDER FOR COMPLAINTS OF NAUSEA. WILL MONITOR.
--- NOTE | 2020-04-16 18:21 | NUR ---
PER PATIENT, PRN MED HAS BEEN EFFECTIVE. NO FURTHER COMPLAINTS AT THIS TIME., CALL LIGHT IN REACH
[2020-04-16 20:00] VITALS: BP 118/47
--- NOTE | 2020-04-16 20:40 | NUR ---
ORDER RECIEVED FROM DR. COSBY TO CONTINUE ONE MORE BAG OF FLUIDS. PATIENTS URINE IS WARP SPOOLER TODAY, BUT PATIENT HAVING MORE PAIN TODAY. 80CC/HR OF NORMAL SALINE X1 MORE BAG
--- NOTE | 2020-04-16 20:53 | NUR ---
PRN MORPHINE GIVEN FOR PT COMPLAINTS OF LEFT FLANK PAIN RATING IT 6/10. CALL LIGHT WITHIN REACH, WILL MONITOR
--- NOTE | 2020-04-16 21:00 | NUR ---
OK PER DR. COSBY TO ADVANCE PATIENT TO A FULL LIQUID DIET PATIENT ISN'T FEELING NAUSEATED ANYMORE.
--- NOTE | 2020-04-16 21:15 | NUR ---
PT REQUESTED SILVINO TO TRY AT THIS TIME. WILL MONITOR
--- NOTE | 2020-04-16 21:20 | NUR ---
PT TOLERATED EATING SHERBERT AT THIS TIME. DENIES ANY NAUSEA.
--- NOTE | 2020-04-16 21:50 | NUR ---
PRN MORPHINE APPEARS EFFECTIVE, PT SLEEPING. BREATHING IS EASY AND REGULAR. CALL LIGHT WITHIN REACH, WILL MONITOR
--- NOTE | 2020-04-16 22:00 | NUR ---
PATIENT REQUESTED SHERBERT TO TRY. TOLERATED WELL. CALL LIGHT WITHIN REACH, WILL MONITOR
--- NOTE | 2020-04-16 23:00 | NUR ---
PATIENT SLEEPING. NO DISTRESS NOTED. IV FLUIDS INFUSING. CALL LIGHT WITHIN REACH, WILL TRICIA
[2020-04-17] VITALS: BP 100/60; BP 108/52
--- NOTE | 2020-04-17 02:33 | NUR ---
24 HR chart check completed.
--- NOTE | 2020-04-17 02:59 | NUR ---
24 HR chart check completed.
--- NOTE | 2020-04-17 06:33 | NUR ---
PRN MORPHINE GIVEN FOR PT COMPLAINTS OF LEFT SIDED FLANK PAIN. RATING IT 7/10. CALL LIGHT WITHIN REACH, WILL MONITOR
[2020-04-17 06:45] LABS: BASO % 0.1 % (0.0-1.0); HEMATOCRIT 37.3 % (42.0-52.0); LYMPH # 1.2 10*3/uL (1.3-4.4); LYMPH % 8.8 % (27.0-41.0); MEAN CELL VOLUME 94.4 fl (80.0-94.0); MEAN CORPUSCULAR HGB 29.6 pg (27.0-31.0); MEAN CORPUSCULAR HGB CONC 31.4 g/dl (33.0-37.0); MEAN PLATELET VOLUME 10.1 fl (9.6-12.3); MONO # 1.2 10*3/uL (0.1-1.0); MONO % 8.4 % (3.0-9.0); NEUT # 11.3 10*3/uL (2.3-7.9); NEUT % 82.3 % (47.0-73.0); PLATELET COUNT AUTOMATED 184 10*3/uL (130-400); RED BLOOD COUNT 3.95 10*6/uL (4.50-5.90); RED CELL DISTRI WIDTH 14.6 % (0-14.5); WHITE BLOOD COUNT 13.7 10*3/uL (4.8-10.8)
[2020-04-17 07:30] LABS: CREATININE 1.49 mg/dL (0.70-1.30)
--- NOTE | 2020-04-17 07:33 | NUR ---
BLOOD SUGAR 110, TAKEN FROM [facility]
[2020-04-17 08:00] VITALS: BP 136/58
--- NOTE | 2020-04-17 08:44 | NUR ---
PATIENT MEDICATED WITH NORCO AT THIS TIME FOR COMPLAINTS OF PAIN 6/10 TO LEFT ABD/SIDE. WILL MONITOR FOR EFFECTIVENESS.
--- NOTE | 2020-04-17 09:00 | NUR ---
case management visits with patient, he states he will return home when discharged and denies any home needs, he stated he is a possibly discharge for today, case management will follow,
--- NOTE | 2020-04-17 09:44 | NUR ---
PER PATIENT MEDICATION HAS BEEN EFFECTIVE. NO FURTHER COMPLAINTS AT THIS TIME.
[2020-04-17 12:00] VITALS: BP 141/65
[2020-04-17] MEDS ORDERED: NORCO 5-325 TA1 EACH PO ×2 (14:51→15:06)
[2020-04-17] MEDS ORDERED: TAMSULOSIN HCL0.4 MG PO (14:51)
--- NOTE | 2020-04-17 16:00 | NUR ---
Discharge instructions reviewed with patient/family. Patient receptive and verbalizes understanding. Follow-up care arranged. Written instructions given to patient/family. HEPLOCK DISCONTINUED. PRESCRIPTION GIVEN TO PATIENT. AMBULATORY OFF FLOOR. GIANNI PAN
== END 2020-04-17 16:00 | disposition home or self-care (01) | DRG 683 ==
LOC: ED 14:05 → 4E 17:43 → EDHOLD 17:43 → 4E 18:32
PROVIDERS: Emergency Medicine; Hospitalist; Internal Medicine; ADMIT Student in an Organized Health Care Education/Training Program
DX: N17.0 Acute kidney failure with tubular necrosis (principal); F33.9 Major depressive disorder, recurrent, unspecified; N13.2 Hydronephrosis with renal and ureteral calculous obstruction; E86.0 Dehydration; F41.9 Anxiety disorder, unspecified; D72.829 Elevated white blood cell count, unspecified; D64.9 Anemia, unspecified; E87.8 Other disorders of electrolyte and fluid balance, not elsewhere classified; I10 Essential (primary) hypertension; M51.36 Other intervertebral disc degeneration, lumbar region; E78.5 Hyperlipidemia, unspecified; M06.9 Rheumatoid arthritis, unspecified; E66.9 Obesity, unspecified; G89.29 Other chronic pain; R00.1 Bradycardia, unspecified; E83.41 Hypermagnesemia; E11.65 Type 2 diabetes mellitus with hyperglycemia; Z91.041 Radiographic dye allergy status; Z91.013 Allergy to seafood; Z90.49 Acquired absence of other specified parts of digestive tract; Z83.3 Family history of diabetes mellitus; Z82.49 Family history of ischemic heart disease and other diseases of the circulatory system; Z82.5 Family history of asthma and other chronic lower respiratory diseases; Z81.2 Family history of tobacco abuse and dependence; Z87.891 Personal history of nicotine dependence; Z82.0 Family history of epilepsy and other diseases of the nervous system; Z79.899 Other long term (current) drug therapy; Z68.27 Body mass index [BMI] 27.0-27.9, adult; Z03.818 Encounter for observation for suspected exposure to other biological agents ruled out

== ENCOUNTER → 2023-04-21 | Outpatient (CLI) | payer BC ==
[~2023-04-21] MED LIST changes: +ABILIFY10 MG PO; +BUSPAR5 MG PO; +LISINOPRIL10 M1 PO; +SERTRALINE HYD100 MG PO; +TAMSULOSIN HCL0.4 MG PO; +TRAZODONE50 MG PO; +VISTARIL25 MG PO
[2023-04-21 12:45] LABS: BUN 12 mg/dl (9-23); CHLORIDE 104 mmol/L (98-107); CHOLESTEROL 114 mg/dL (<200); LDL CHOLESTEROL 55 mg/dL (9-159); POTASSIUM 4.2 mmol/L (3.4-5.1); TRIGLYCERIDES 75 mg/dl (<150)
== END | disposition home or self-care (01) ==
LOC: LAB 11:23
PROVIDERS: ATTEND Family Medicine
DX: E11.9 Type 2 diabetes mellitus without complications (principal); I10 Essential (primary) hypertension

== ENCOUNTER → 2023-11-22 | Outpatient (CLI) | payer MEDICARE ==
[2023-11-22 12:08] LABS: BASO % 0.4 % (0.0-1.0); EOS % 0.1 % (1.0-4.0); LYMPH % 24.7 % (27.0-41.0); MEAN CELL VOLUME 96.4 fl (80.0-94.0); MEAN CORPUSCULAR HGB 29.8 pg (27.0-31.0); MEAN CORPUSCULAR HGB CONC 30.9 g/dl (33.0-37.0); MEAN PLATELET VOLUME 9.9 fl (9.6-12.3); MONO # 0.7 10*3/uL (0.1-1.0); MONO % 8.4 % (3.0-9.0); NEUT # 5.3 10*3/uL (2.3-7.9); NEUT % 66.3 % (47.0-73.0); PLATELET COUNT AUTOMATED 243 10*3/uL (130-400); RED BLOOD COUNT 4.67 10*6/uL (4.50-5.90); RED CELL DISTRI WIDTH 13.4 % (0-14.5)
[2023-11-22 12:10] LABS: BILIRUBIN Negative (Negative); BLOOD Negative (Negative); CLARITY Clear (Clear); COLOR Yellow (Yellow); GLUCOSE Negative (Negative); KETONE Trace (Negative); LEUKO ESTERASE Negative (Negative); NITRITE Negative (Negative); PH 5.5 (4.5-8.0); SPECIFIC GRAVITY 1.025 (1.001-1.030); UROBILINOGEN 0.2 E.U./dl (0.0-1.0)
[2023-11-22 12:19] LABS: CALCIUM OXALATE CRYSTALS 1+; HYALINE CAST 0-2; MUCOUS 1+; RBC 0-2 rbc/hpf (0-2)
[2023-11-22 12:20] LABS: WBC 0-2 wbc/hpf (0-5)
[2023-11-22 12:31] LABS: ALKALINE PHOSPHATASE 88 U/L (46-116); BUN 18 mg/dl (9-23); CHLORIDE 106 mmol/L (98-107); CHOLESTEROL 120 mg/dL (<200); LDL CHOLESTEROL 50 mg/dL (9-159); LIPASE 64 U/L (12-53); SGPT/ALT 15 U/L (5-49); TOTAL PROTEIN 7.3 gm/dL (6.0-8.0); TRIGLYCERIDES 74 mg/dl (<150)
== END | disposition home or self-care (01) ==
LOC: LAB 11:32
PROVIDERS: ATTEND Family Medicine
DX: R10.30 Lower abdominal pain, unspecified (principal); R63.4 Abnormal weight loss; E11.9 Type 2 diabetes mellitus without complications

== ENCOUNTER → 2023-12-23 | Outpatient (CLI) | payer MEDICARE | LOC: CT 00:26 | PROVIDERS: ATTEND Family Medicine | DX: Z12.89 Encounter for screening for malignant neoplasm of other sites (principal); J43.2 Centrilobular emphysema; R10.30 Lower abdominal pain, unspecified; R63.4 Abnormal weight loss; Z87.891 Personal history of nicotine dependence; K57.30 Diverticulosis of large intestine without perforation or abscess without bleeding; Z90.49 Acquired absence of other specified parts of digestive tract; I70.0 Atherosclerosis of aorta; R91.8 Other nonspecific abnormal finding of lung field; E04.1 Nontoxic single thyroid nodule; E11.9 Type 2 diabetes mellitus without complications; I10 Essential (primary) hypertension; R34 Anuria and oliguria ==

== ENCOUNTER → 2024-01-10 | Outpatient (CLI) | payer MEDICARE | END | disposition home or self-care (01) | LOC: US 08:50 | PROVIDERS: ATTEND Family Medicine | DX: E04.1 Nontoxic single thyroid nodule (principal) ==

== ENCOUNTER 2024-03-08 09:07 | Emergency (ER) | payer MEDICARE ==
[~2024-03-08] VITALS: Ht 175.2 cm; Wt 70.3 kg
[2024-03-08 09:44] LABS: BASO % 0.3 % (0.0-1.0); EOS # 0.1 10*3/uL (0.0-0.4); EOS % 1.1 % (1.0-4.0); HEMATOCRIT 39.3 % (42.0-52.0); LYMPH # 2.1 10*3/uL (1.3-4.4); LYMPH % 33.5 % (27.0-41.0); MEAN CORPUSCULAR HGB 30.4 pg (27.0-31.0); MEAN CORPUSCULAR HGB CONC 31.3 g/dl (33.0-37.0); MEAN PLATELET VOLUME 8.9 fl (9.6-12.3); MONO # 0.7 10*3/uL (0.1-1.0); MONO % 10.7 % (3.0-9.0); NEUT # 3.4 10*3/uL (2.3-7.9); NEUT % 53.9 % (47.0-73.0); PLATELET COUNT AUTOMATED 279 10*3/uL (130-400); RED BLOOD COUNT 4.05 10*6/uL (4.50-5.90); RED CELL DISTRI WIDTH 13.4 % (0-14.5); WHITE BLOOD COUNT 6.4 10*3/uL (4.8-10.8)
[2024-03-08 09:55] LABS: ACT PARTIAL THROMBO TIME 26.2 SECONDS (20.0-32.1)
[2024-03-08 10:04] LABS: ALKALINE PHOSPHATASE 77 U/L (46-116); BUN 19 mg/dl (9-23); CHLORIDE 108 mmol/L (98-107); LIPASE 37 U/L (12-53); SGPT/ALT 16 U/L (5-49); TOTAL PROTEIN 6.2 gm/dL (6.0-8.0)
[2024-03-08] MEDS ORDERED: Dexamethasone Sodium Phospha 20 MG/5 ML VIAL IM ONE (12:15)
[2024-03-08] MEDS ORDERED: Ketorolac Tromethamine 30 MG/ML VIAL IM ONE (12:15)
[2024-03-08] MEDS ORDERED: CYCLOBENZAPRINE5 M3 PO (12:23)
[2024-03-08] MEDS ORDERED: MEDROL DOSEPAK4 MG PO (12:23)
== END 2024-03-08 12:27 | disposition home or self-care (01) ==
LOC: ED 09:07
PROVIDERS: Internal Medicine
DX: S46.912A Strain of unspecified muscle, fascia and tendon at shoulder and upper arm level, left arm, initial encounter (principal); I10 Essential (primary) hypertension; E11.9 Type 2 diabetes mellitus without complications; F32.A Depression, unspecified; F41.9 Anxiety disorder, unspecified; Z87.442 Personal history of urinary calculi; F17.200 Nicotine dependence, unspecified, uncomplicated; Z91.041 Radiographic dye allergy status; Z91.013 Allergy to seafood; Z90.49 Acquired absence of other specified parts of digestive tract; Z98.890 Other specified postprocedural states; X58.XXXA Exposure to other specified factors, initial encounter; Y93.89 Activity, other specified; Y92.89 Other specified places as the place of occurrence of the external cause; Y99.8 Other external cause status

== ENCOUNTER → 2024-03-27 | Outpatient (CLI) | payer MEDICARE ==
[~2024-03-27] MED LIST changes: +CYCLOBENZAPRINE5 M3 PO
[2024-03-27 10:34] LABS: BASO % 0.2 % (0.0-1.0); EOS % 0.5 % (1.0-4.0); HEMATOCRIT 41.7 % (42.0-52.0); LYMPH # 2.2 10*3/uL (1.3-4.4); LYMPH % 27.1 % (27.0-41.0); MEAN CELL VOLUME 96.5 fl (80.0-94.0); MEAN CORPUSCULAR HGB CONC 32.1 g/dl (33.0-37.0); MEAN PLATELET VOLUME 9.1 fl (9.6-12.3); MONO # 0.7 10*3/uL (0.1-1.0); MONO % 8.6 % (3.0-9.0); NEUT # 5.2 10*3/uL (2.3-7.9); NEUT % 63.4 % (47.0-73.0); PLATELET COUNT AUTOMATED 251 10*3/uL (130-400); RED BLOOD COUNT 4.32 10*6/uL (4.50-5.90); RED CELL DISTRI WIDTH 14.1 % (0-14.5); WHITE BLOOD COUNT 8.3 10*3/uL (4.8-10.8)
[2024-03-27 11:39] LABS: FREE T4 1.38 ng/dl (0.89-1.76)
== END | disposition home or self-care (01) ==
LOC: LAB 10:22
PROVIDERS: ATTEND Internal Medicine
DX: Z12.5 Encounter for screening for malignant neoplasm of prostate (principal); I10 Essential (primary) hypertension; E11.9 Type 2 diabetes mellitus without complications

== ENCOUNTER → 2024-04-19 | Outpatient (CLI) | payer MEDICARE ==
[2024-04-19 13:44] LABS: BASO % 0.4 % (0.0-1.0); EOS % 0.2 % (1.0-4.0); HEMATOCRIT 34.7 % (42.0-52.0); LYMPH # 1.5 10*3/uL (1.3-4.4); LYMPH % 27.8 % (27.0-41.0); MEAN CELL VOLUME 95.9 fl (80.0-94.0); MEAN CORPUSCULAR HGB 31.8 pg (27.0-31.0); MEAN CORPUSCULAR HGB CONC 33.1 g/dl (33.0-37.0); MEAN PLATELET VOLUME 9.6 fl (9.6-12.3); MONO # 0.6 10*3/uL (0.1-1.0); MONO % 10.4 % (3.0-9.0); NEUT # 3.2 10*3/uL (2.3-7.9); PLATELET COUNT AUTOMATED 213 10*3/uL (130-400); RED BLOOD COUNT 3.62 10*6/uL (4.50-5.90); RED CELL DISTRI WIDTH 14.6 % (0-14.5); WHITE BLOOD COUNT 5.3 10*3/uL (4.8-10.8)
[2024-04-19 14:44] LABS: ALKALINE PHOSPHATASE 72 U/L (46-116); BUN 15 mg/dl (9-23); CHLORIDE 106 mmol/L (98-107); POTASSIUM 4.1 mmol/L (3.4-5.1); SGPT/ALT 24 U/L (5-49); TOTAL PROTEIN 5.9 gm/dL (6.0-8.0)
== END | disposition home or self-care (01) ==
LOC: LAB 13:19 → US 14:00
PROVIDERS: ATTEND Urology
DX: N28.89 Other specified disorders of kidney and ureter (principal); R97.20 Elevated prostate specific antigen [PSA]; R53.83 Other fatigue

== ENCOUNTER → 2024-06-19 | Outpatient (CLI) | payer MEDICARE ==
[2024-06-19 12:22] LABS: BASO % 0.4 % (0.0-1.0); EOS % 0.3 % (1.0-4.0); HEMATOCRIT 43.7 % (42.0-52.0); LYMPH # 1.6 10*3/uL (1.3-4.4); LYMPH % 19.5 % (27.0-41.0); MEAN CELL VOLUME 97.1 fl (80.0-94.0); MEAN CORPUSCULAR HGB 30.9 pg (27.0-31.0); MEAN CORPUSCULAR HGB CONC 31.8 g/dl (33.0-37.0); MEAN PLATELET VOLUME 9.9 fl (9.6-12.3); MONO # 0.7 10*3/uL (0.1-1.0); MONO % 8.6 % (3.0-9.0); NEUT # 5.6 10*3/uL (2.3-7.9); NEUT % 71.1 % (47.0-73.0); PLATELET COUNT AUTOMATED 265 10*3/uL (130-400); RED CELL DISTRI WIDTH 13.7 % (0-14.5); WHITE BLOOD COUNT 7.9 10*3/uL (4.8-10.8)
[2024-06-19 12:36] LABS: ACT PARTIAL THROMBO TIME 26.3 SECONDS (20.0-32.1)
[2024-06-19 13:09] LABS: ALKALINE PHOSPHATASE 104 U/L (46-116); BUN 16 mg/dl (9-23); CHLORIDE 105 mmol/L (98-107); POTASSIUM 4.4 mmol/L (3.4-5.1); SGPT/ALT 21 U/L (5-49); TOTAL PROTEIN 7.2 gm/dL (6.0-8.0)
== END | disposition home or self-care (01) ==
LOC: LAB 11:20
PROVIDERS: ATTEND Urology
DX: Z01.818 Encounter for other preprocedural examination (principal)

== ENCOUNTER 2024-09-14 15:33 | Emergency (ER) | payer MEDICARE ==
[~2024-09-14] VITALS: Ht 175.2 cm; Wt 68.0 kg
[2024-09-14] MEDS ORDERED: MORPHINE Sulfate 2 MG/ML SYR IV ONE (15:35)
[2024-09-14] MEDS ORDERED: SODIUM CHLORIDE 0.9% 1,000 ML IV ONE (15:35)
[2024-09-14] MEDS ORDERED: Ondansetron Hydrochloride 4 MG/2 ML VIAL IV ONE (15:40)
[2024-09-14 16:28] LABS: BASO % 0.4 % (0.0-1.0); EOS % 0.3 % (1.0-4.0); HEMATOCRIT 37.9 % (42.0-52.0); MEAN CORPUSCULAR HGB CONC 31.9 g/dl (33.0-37.0); MEAN PLATELET VOLUME 9.2 fl (9.6-12.3); MONO # 0.7 10*3/uL (0.1-1.0); MONO % 9.2 % (3.0-9.0); NEUT % 64.4 % (47.0-73.0); PLATELET COUNT AUTOMATED 228 10*3/uL (130-400); RED BLOOD COUNT 4.03 10*6/uL (4.50-5.90); RED CELL DISTRI WIDTH 13.7 % (0-14.5); WHITE BLOOD COUNT 7.7 10*3/uL (4.8-10.8)
[2024-09-14 16:48] LABS: BUN 17 mg/dl (9-23); CHLORIDE 108 mmol/L (98-107); POTASSIUM 4.2 mmol/L (3.4-5.1)
[2024-09-14] MEDS ORDERED: VISTARIL25 MG PO (16:59)
== END 2024-09-14 17:16 | disposition home or self-care (01) ==
LOC: ED 15:33
PROVIDERS: Emergency Medicine
DX: R55 Syncope and collapse (principal); R07.81 Pleurodynia; T46.5X5A Adverse effect of other antihypertensive drugs, initial encounter; E11.9 Type 2 diabetes mellitus without complications; I10 Essential (primary) hypertension; E78.5 Hyperlipidemia, unspecified; M06.9 Rheumatoid arthritis, unspecified; F32.A Depression, unspecified; F41.9 Anxiety disorder, unspecified; R51.9 Headache, unspecified; Z87.442 Personal history of urinary calculi; F17.200 Nicotine dependence, unspecified, uncomplicated; Z91.013 Allergy to seafood; Z91.041 Radiographic dye allergy status; Z90.49 Acquired absence of other specified parts of digestive tract; Z98.890 Other specified postprocedural states; Y92.89 Other specified places as the place of occurrence of the external cause

== ENCOUNTER → 2024-10-25 | Outpatient (CLI) | payer MEDICARE ==
[2024-10-25 10:59] LABS: BASO % 0.5 % (0.0-1.0); EOS % 0.6 % (1.0-4.0); MEAN CELL VOLUME 95.8 fl (80.0-94.0); MEAN CORPUSCULAR HGB 30.1 pg (27.0-31.0); MEAN CORPUSCULAR HGB CONC 31.5 g/dl (33.0-37.0); MONO # 0.6 10*3/uL (0.1-1.0); MONO % 8.9 % (3.0-9.0); NEUT # 3.6 10*3/uL (2.3-7.9); NEUT % 55.5 % (47.0-73.0); PLATELET COUNT AUTOMATED 241 10*3/uL (130-400); RED BLOOD COUNT 4.28 10*6/uL (4.50-5.90); RED CELL DISTRI WIDTH 14.3 % (0-14.5); WHITE BLOOD COUNT 6.5 10*3/uL (4.8-10.8)
[2024-10-25 11:27] LABS: ALKALINE PHOSPHATASE 116 U/L (46-116); BUN 17 mg/dl (9-23); CHLORIDE 106 mmol/L (98-107); POTASSIUM 4.6 mmol/L (3.4-5.1); SGPT/ALT 22 U/L (5-49); TOTAL PROTEIN 6.8 gm/dL (6.0-8.0)
== END | disposition home or self-care (01) ==
LOC: LAB 10:40
PROVIDERS: ATTEND Urology
DX: C61 Malignant neoplasm of prostate (principal); R53.83 Other fatigue

== ENCOUNTER → 2024-11-21 | Outpatient (CLI) | payer MEDICARE ==
[2024-11-21 10:35] LABS: BASO % 0.4 % (0.0-1.0); EOS # 0.1 10*3/uL (0.0-0.4); EOS % 0.7 % (1.0-4.0); MEAN CELL VOLUME 97.3 fl (80.0-94.0); MEAN CORPUSCULAR HGB 29.9 pg (27.0-31.0); MEAN CORPUSCULAR HGB CONC 30.7 g/dl (33.0-37.0); MEAN PLATELET VOLUME 9.5 fl (9.6-12.3); MONO # 0.7 10*3/uL (0.1-1.0); MONO % 9.7 % (3.0-9.0); NEUT # 3.8 10*3/uL (2.3-7.9); NEUT % 56.8 % (47.0-73.0); PLATELET COUNT AUTOMATED 249 10*3/uL (130-400); RED BLOOD COUNT 4.42 10*6/uL (4.50-5.90); RED CELL DISTRI WIDTH 14.3 % (0-14.5); WHITE BLOOD COUNT 6.7 10*3/uL (4.8-10.8)
[2024-11-21 12:01] LABS: ALKALINE PHOSPHATASE 109 U/L (46-116); BUN 20 mg/dl (9-23); CHLORIDE 105 mmol/L (98-107); POTASSIUM 4.2 mmol/L (3.4-5.1); SGPT/ALT 13 U/L (5-49)
== END | disposition home or self-care (01) ==
LOC: LAB 09:58
PROVIDERS: ATTEND Urology
DX: Z01.818 Encounter for other preprocedural examination (principal); J44.9 Chronic obstructive pulmonary disease, unspecified

== ENCOUNTER → 2024-12-19 | Outpatient (CLI) | payer MEDICARE | END | disposition home or self-care (01) | LOC: NM 03:27 | PROVIDERS: ATTEND Urology | DX: C61 Malignant neoplasm of prostate (principal); S22.41XD Multiple fractures of ribs, right side, subsequent encounter for fracture with routine healing; E04.2 Nontoxic multinodular goiter; K59.00 Constipation, unspecified; Z90.49 Acquired absence of other specified parts of digestive tract; X58.XXXD Exposure to other specified factors, subsequent encounter ==

== ENCOUNTER → 2025-05-17 | Outpatient (CLI) | payer MEDICARE ==
[2025-05-17 09:55] LABS: BASO # 0.0 10*3/uL (0.0-0.1); BASO % 0.4 % (0.0-1.0); EOS # 0.1 10*3/uL (0.0-0.4); EOS % 1.0 % (1.0-4.0); MEAN CELL VOLUME 95.5 fl (80.0-94.0); MEAN CORPUSCULAR HGB 30.2 pg (27.0-31.0); MEAN PLATELET VOLUME 9.0 fl (9.6-12.3); MONO # 0.6 10*3/uL (0.1-1.0); MONO % 7.7 % (3.0-9.0); NEUT # 4.7 10*3/uL (2.3-7.9); NEUT % 61.2 % (47.0-73.0); NUCLEATED RED BLOOD CELL 0.0 % (0.0-0.0); NUCLEATED RED BLOOD CELL 0.0 10*3/uL (0.0-0.0); PLATELET COUNT AUTOMATED 254 10*3/uL (130-400); RED CELL DISTRI WIDTH 13.9 % (0-14.5)
[2025-05-17 10:18] LABS: BUN 13 mg/dl (9-23); SGPT/ALT 13 U/L (5-49)
== END | disposition home or self-care (01) ==
LOC: LAB 09:37
PROVIDERS: ATTEND Nurse Practitioner
DX: C61 Malignant neoplasm of prostate (principal); Z12.5 Encounter for screening for malignant neoplasm of prostate

== ENCOUNTER → 2025-06-19 | Outpatient (CLI) | payer MEDICARE ==
[2025-06-19 10:24] LABS: BASO # 0.0 10*3/uL (0.0-0.1); BASO % 0.5 % (0.0-1.0); EOS # 0.1 10*3/uL (0.0-0.4); EOS % 0.9 % (1.0-4.0); MEAN CELL VOLUME 96.4 fl (80.0-94.0); MEAN CORPUSCULAR HGB 30.3 pg (27.0-31.0); MEAN PLATELET VOLUME 9.4 fl (9.6-12.3); MONO # 0.6 10*3/uL (0.1-1.0); MONO % 9.8 % (3.0-9.0); NEUT # 3.3 10*3/uL (2.3-7.9); NEUT % 58.4 % (47.0-73.0); NUCLEATED RED BLOOD CELL 0.0 % (0.0-0.0); NUCLEATED RED BLOOD CELL 0.0 10*3/uL (0.0-0.0); PLATELET COUNT AUTOMATED 245 10*3/uL (130-400); RED CELL DISTRI WIDTH 13.8 % (0-14.5)
[2025-06-19 10:59] LABS: BUN 14 mg/dl (9-23); SGPT/ALT 11 U/L (5-49)
== END | disposition home or self-care (01) ==
LOC: LAB 09:53
PROVIDERS: ATTEND Urology
DX: C61 Malignant neoplasm of prostate (principal); R53.83 Other fatigue